=== PATIENT | female | born 1990 | race Caucasian/White ===

== ENCOUNTER 2022-01-15 21:22 | Emergency (ER) | payer OTHER ==
[2022-01-15 21:53] VITALS: O2SAT 98
[2022-01-15 23:14] VITALS: BP 123/69; PULSE 76
[2022-01-15] MEDS ORDERED: TORAdol 30 mg Injection ONE (23:37)
[2022-01-15] MEDS ORDERED: TORAdol 30 mg Injection IM ONE (23:37)
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
== END 2022-01-15 23:51 | disposition home or self-care (01) ==
LOC: ED 21:22
DX: S46.012A Strain of muscle(s) and tendon(s) of the rotator cuff of left shoulder, initial encounter (principal); S13.4XXA Sprain of ligaments of cervical spine, initial encounter; V43.52XA Car driver injured in collision with other type car in traffic accident, initial encounter; M25.512 Pain in left shoulder; M54.2 Cervicalgia
CPT/HCPCS: 73030; 96372; 99285; J1885

== ENCOUNTER 2023-08-19 22:23 | Emergency (ER) | payer OTHER ==
[2023-08-19] MEDS ORDERED: TYLENOL 325 MG PO ONE (22:40)
[2023-08-19 22:48] VITALS: BP 142/76; TEMP 98.4
[2023-08-19 22:49] VITALS: O2SAT 98
[2023-08-19] MEDS ORDERED: TYLENOL 325 MG ONE (22:49)
--- NOTE | 2023-08-19 22:49 | ERPHSYRPT ---
- History of Present Illness Time Seen by Provider: 08/19/23 22:40 Source: patient Exam Limitations: no limitations Physician History: 32-year-old female presents emergency department for evaluation of pain to her left wrist. 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 She reports she was helping a resident pull up her pants when the resident fell onto her left arm. Patient states she twisted her wrist. Patient has pain at her left wrist. Pain described as an ache that is localized. Pain worse with movement and palpation. Pain improved with rest. No other injuries reported. No elbow pain. No forearm pain. No upper arm or shoulder pain. Patient states she otherwise feels well. She voices no other complaints or concerns at this time. Portions of this note were created with voice recognition technology. There may be grammatical, spelling, punctuation or sound alike errors Occurred: just prior to arrival Method of Injury: other Quality: constant Severity of Pain-Max: moderate Severity of Pain-Current: mild Extremities Pain Location: wrist: left Modifying Factors: Improves With: movement Associated Symptoms: none Allergies/Adverse Reactions: meloxicam [From Mobic] Allergy (Verified 08/19/23 22:31) Blisters Home Medications: Aspirin [Ecotrin] 81 mg PO DAILY 08/19/23 [History] Ergocalciferol (Vitamin D2) [Vitamin D2] 1,250 mcg PO WEEKLY 08/19/23 [History] Esomeprazole Magnesium 40 mg PO DAILY 08/19/23 [History] Sildenafil Citrate [Revatio] 20 mg PO TID 08/19/23 [History] Simvastatin 5 mg PO HS 08/19/23 [History] Venlafaxine HCl 37.5 mg [Effexor 37.5 mg] 37.5 mg PO DAILY 08/19/23 [History] Hx Tetanus, Diphtheria Vaccination/Date Given: Yes (2017) Hx Influenza Vaccination/Date Given: Yes Hx Pneumococcal Vaccination/Date Given: No Travel Risk - Vaccine Status Have you recieved a Covid-19 vaccination: Yes Registered Route Associate: Moderna - Vaccination Dates Date of 2cond Vaccination (if applicable): sep 11 - Review of Systems Constitutional: No Symptoms, No Fever, No Chills Eyes: No Symptoms Ears, Nose, & Throat: No Symptoms Respiratory: No Symptoms, No Cough, No Dyspnea Cardiac: No Symptoms, No Chest Pain, No Edema, No Syncope Abdominal/Gastrointestinal: No Symptoms, No Abdominal Pain, No Nausea, No Vo miting, No Diarrhea Genitourinary Symptoms: No Symptoms, No Dysuria Musculoskeletal: No Symptoms, No Back Pain, No Neck Pain Skin: No Symptoms, No Rash Neurological: No Symptoms, No Dizziness, No Focal Weakness, No Sensory Changes Psychological: No Symptoms Endocrine: No Symptoms Hematologic/Lymphatic: No Symptoms Immunological/Allergic: No Symptoms All Other Systems: Reviewed and Negative - Past Medical History Pertinent Past Medical History: Yes Psycho-Social History: Depression - Past Surgical History Past Surgical History: No - Social History Smoking Status: Never smoker Exposure to second hand smoke: Yes Drug Use: none Patient Lives Alone: No - Female History Hx Now: No - Nursing Vital Signs Nursing Vital Signs: Initial Vital Signs Temperature 98.4 F 08/19/23 22:36 Pulse Rate 90 08/19/23 22:36 Respiratory Rate 16 08/19/23 22:36 Blood Pressure 142/76 08/19/23 22:36 O2 Sat by Pulse Oximetry 100 08/19/23 22:36 Pain Scale Pain Intensity 8 - Physical Exam General Appearance: no apparent distress, alert Neck Exam: normal inspection, full range of motion Cardiovascular/Respiratory Exam: chest non-tender, normal breath sounds, regular rate/rhythm, no respiratory distress Abdominal Exam: non-tender, soft, No guarding Back Exam: normal inspection, No vertebral tenderness Shoulder Exam: normal inspection, non-tender, no evidence of injury, normal ROM Elbow/Forearm Exam: normal inspection, non-tender, no evidence of injury, normal ROM Wrist Exam: no evidence of injury (No swelling. Limited radial ulnar deviation range of motion. Wrist flexion extension appear to be within normal limits. No swelling. Overlying soft tissue intact. No open or draining lesions. The involved extremities neurovascular intact distally compartments are soft cap refill less than 2 se) Hand Exam: normal inspection, non-tender, no evidence of injury, normal ROM Neuro/Tendon Exam: normal sensation, normal motor functions Mental Status Exam: alert, oriented x 3, cooperative Skin Exam: normal color, warm, dry SpO2 Interpretation: normal SpO2: 98 O2 Delivery: Room Air - Course Nursing assessment & vital signs reviewed: Yes - Radiology Exams Wrist X-ray Interpretation: Interpreted by me (No fracture or dislocation. No soft tissue abnormalities) Ordered Tests: Active Orders 24 hr Category Date Time Status WRIST (MIN 3 VIEWS) Stat Exams 08/19/23 22:39 Taken Medication Summary Discontinued Medications Generic Name Dose Route Start Last Admin Trade Name Sherly PRN Reason Stop Dose Admin Acetaminophen 975 mg 08/19/23 22:40 08/19/23 22:50 Acetaminophen 325 Mg Tablet PO 08/19/23 22:41 975 mg STAT ONE Administration Acetaminophen Confirm 08/19/23 22:49 Acetaminophen 325 Mg Tablet Administered 08/19/23 22:50 Dose 975 mg .ROUTE .ST[place]abalu-MED ONE - Progress Progress: improved Progress Note: Patient is a 32-year-old female presents to our ED for evaluation of left wrist pain. 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 Injury occurred just prior to arrival. Physical exam shows some decreased range of motion at the left wrist particularly in the radial and ulnar deviation. No pain at the left forearm. No involvement of the shoulder or elbow. No involvement of the digits. Or hand. Preliminary x-ray report is negative for fracture dislocation. Formal read pending. Patient placed in left upper extremity wrist splint. Patient is allergic to NSAIDs and requested Tylenol for pain control. Tylenol administered. A left wrist splint applied. A referral to the orthopedic clinic provided. Patient agrees to follow-up with orthopedic clinic tomorrow for further evaluation and treatment. Patient voices no other complaints or concerns at this time. Will discharge home. [id number] analgesics as needed. Portions of this note were created with voice recognition technology. There may be grammatical, spelling, punctuation or sound alike errors Complexity problem addressed is low acute uncomplicated No critical care time Complexity of data reviewed and analyzed is moderate. X-ray ordered x-ray independently reviewed by Dr. Palomares. Formal read pending. Risk of complication and or risk of morbidity/mortality of patient management is low. Patient will be discharged home. Vital stable. Diagnosis is left wrist sprain. Time spent to discharge patient is approximately 10 minutes. Plan of care established for shared decision making. Patient referred to orthopedic clinic. Patient to follow-up tomorrow with the orthopedic clinic. 08/19/23 23:07 Counseled pt/family regarding: diagnosis, need for follow-up, rad results - Departure Departure Disposition: Home Clinical Impression: Left wrist sprain Condition: Stable Critical Care Time: No Referrals: ERIK MCLAIN [Primary Care Provider] - Follow up/PCP as directed Instructions: Wrist Sprain (DC) Additional Instructions: Discharge/Care Plan MARYCARMEN CONNORS was seen on 08/19/23 in the Emergency Room. The patient was counseled regarding Diagnosis,Lab results, Imaging studies, need for follow up and when to return to the Emergency Room. Prescriptions given: Discharge Note I have spoken with the patient and/or caregivers. I have explained the patient's condition, diagnosis and treatment plan based on the information available to me at this time. I have answered the patient's and/or caregiver's questions and addressed any concerns. The patient and/or caregivers have as good understanding of the patient's diagnosis, condition and treatment plan as can be expected at this point. The vital signs have been stable. The patient's condition is stable and appropriate for discharge from the emergency department. The patient will pursue further outpatient evaluation with the primary care physician or other designated or consulting physician as outlined in the discharge instructions. The patient and/or caregivers are agreeable to this plan of care and follow-up instructions have been explained in detail. The patient and/or caregivers have received these instruction. The patient/and or caregivers are aware that any significant change in condition or worsening of symptoms should prompt an immediate return to this or the closest emergency department or call 911. Outpatient Orders: Ortho Referral Time Frame: 1 Day, Facility: [facility], Location: [facility]
[2023-08-19 23:17] VITALS: PULSE 88; RESP 17
--- NOTE | 2023-08-20 08:46 | XRAY ---
Indication: Pain following fall. Comparison: None 3 view left wrist demonstrates radiocarpal joint space narrowing. Minimal 6-7 mm ulnar negative variance, possible Kienbock's disease. No other bony, articular, or soft tissue abnormalities.
== END 2023-08-19 23:18 | disposition home or self-care (01) ==
LOC: ED 22:23
DX: S63.502A Unspecified sprain of left wrist, initial encounter (principal); W50.0XXA Accidental hit or strike by another person, initial encounter; Y93.F9 Activity, other caregiving; Y92.129 Unspecified place in nursing home as the place of occurrence of the external cause; Y99.0 Civilian activity done for income or pay; Z79.899 Other long term (current) drug therapy
CPT/HCPCS: 73110; 99283; L3908; A9270-GY